=== PATIENT | male | born 1980 | race Caucasian/White ===

== ENCOUNTER → 2016-08-29 | Outpatient (REF) ==
[~2016-08-29] MED LIST: ADVIL LIQUI-GE200 MG PO
== END ==
LOC: WSOH 12:10
DX: Z02.89 Encounter for other administrative examinations (principal)

== ENCOUNTER → 2016-09-14 | Outpatient (REF) | LOC: WSOH 08:58 | DX: Z00.00 Encounter for general adult medical examination without abnormal findings (principal) ==

== ENCOUNTER 2017-04-02 07:28 | Observation (INO) | payer OTHER ==
[~2017-04-02] VITALS: Ht 182.9 cm; Wt 95.5 kg
[2017-04-02 07:59] LABS: ADD PATHOLOGY DIFF REVIEW NO; HEMATOCRIT 48.5 % (42.0-52.0); HEMOGLOBIN 16.9 g/dl (13.5-18.0); MEAN CELL VOLUME 87 fl (80.0-100.0); MEAN CORPUSCULAR HEMOGLOBIN 30 pg (27.0-31.0); MEAN CORPUSCULAR HGB CONC 35 g/dl (33.0-37.0); MEAN PLATELET VOLUME 10.9 fl (7.4-10.4); PLATELET COUNT 204 K/mm3 (130-400); RED BLOOD COUNT 5.59 M/mm3 (4.20-5.60); REDCELL DISTRIBUTION WIDTH-CV 12.5 % (11.5-14.5); WHITE BLOOD COUNT 12.3 K/mm3 (4.8-10.8)
[2017-04-02 08:05] LABS: ADJUSTED CALCIUM 9.1 mg/dL (8.4-10.2); ALANINE AMINOTRANSFERASE 35 U/L (21-72); ALBUMIN 3.8 gm/dL (3.5-5.0); ALKALINE PHOSPHATASE 84 U/L (50-136); ANION GAP 10 mmol/L (7-16); BILIRUBIN,TOTAL 1.2 mg/dL (0.0-1.0); BLOOD UREA NITROGEN 22 mg/dL (9-20); CALCIUM 8.9 mg/dL (8.4-10.2); CARBON DIOXIDE 22 mmol/L (22-30); CHLORIDE 105 mmol/L (98-107); CREATININE, serum 1.17 mg/dL (0.66-1.25); GLUCOSE 179 mg/dL (74-106); POTASSIUM 3.7 mmol/L (3.4-5.0); SODIUM 137 mmol/L (137-145); TOTAL PROTEIN 6.8 gm/dL (6.4-8.2)
[2017-04-02 08:11] LABS: PROTHROMBIN TIME 10.5 SECONDS (9.7-12.8)
[2017-04-02 08:14] LABS: PARTIAL THROMBOPLASTIN TIME 25.1 SECONDS (26.0-37.0)
[2017-04-02 08:18] LABS: TROPONIN-I < 0.012 ng/mL (0.000-0.034)
[2017-04-02 08:20] LABS: BAND 2 % (0-10); NEUTROPHILS 44 % (42.0-75.2); PLATELET ESTIMATE NORMAL (NORMAL); TOTAL CELLS COUNTED 100
[2017-04-02 14:17] VITALS: BP 121/71; PULSE 62; TEMP 98.1
[2017-04-02 14:18] VITALS: BP 114/71; PULSE 68; TEMP 98.1
[2017-04-02 14:19] VITALS: BP 113/80; PULSE 77; TEMP 98.1
[2017-04-02] MEDS ORDERED: ADVIL LIQUI-GE200 MG PO (14:20)
[2017-04-02 15:11] VITALS: BP 113/80; PULSE 77; TEMP 98.1
[2017-04-02 18:05] LABS: PH 7 (5-8); SQUAMOUS EPITHELIAL None Seen /hpf; URINE APPEARANCE Clear; URINE BACTERIA None Seen /hpf; URINE BILIRUBIN Negative (NEGATIVE); URINE BLOOD Negative (NEGATIVE); URINE COLOR Straw; URINE GLUCOSE Negative (NEGATIVE); URINE KETONE Negative (NEGATIVE); URINE RBC None Seen /hpf; URINE UROBILINOGEN Negative (NEGATIVE); URINE WBC 0-2 /hpf
[2017-04-02 19:12] VITALS: BP 137/79; PULSE 65; TEMP 98
[2017-04-02 20:07] LABS: THYROID STIMULATING HORMONE 0.456 uIU/mL (0.465-4.680)
[2017-04-02 23:28] VITALS: BP 97/55; PULSE 64; TEMP 97.8
[2017-04-03 03:43] VITALS: BP 102/57; PULSE 59; TEMP 97.9
[2017-04-03 06:44] VITALS: BP 102/57; PULSE 59
[2017-04-03 09:00] VITALS: BP 102/57; PULSE 59; TEMP 97.9
[2017-04-03 12:37] VITALS: BP 128/82; PULSE 69; TEMP 98.1
== END 2017-04-03 15:21 | disposition home or self-care (01) ==
LOC: COL.ER 07:28 → MEDICAL 12:02
PROVIDERS: Emergency Medicine; Internal Medicine
DX: R55 Syncope and collapse (principal); S09.90XA Unspecified injury of head, initial encounter; W18.30XA Fall on same level, unspecified, initial encounter; Y92.89 Other specified places as the place of occurrence of the external cause; Z87.891 Personal history of nicotine dependence
CPT/HCPCS: A9502; G0378; J1650; J7030